=== PATIENT | male | born 1950 | race Caucasian/White ===

== ENCOUNTER 2019-02-14 07:19 | Inpatient (IN) | payer MEDICARE, BC ==
[~2019-02-14] VITALS: Ht 190.5 cm; Wt 99.8 kg
[2019-02-14] MEDS ORDERED: MORPHINE SULFATE INJ 2 MG/ML DISP.SYRIN IV ONE (07:30)
[2019-02-14] MEDS ORDERED: ONDANSETRON HCL/PF - ER 4 MG/2 ML VIAL IV ONE (07:30)
--- NOTE | 2019-02-14 07:31 | NUR ---
DR HENDERSON AT BEDSIDE FOR EVAL.
[2019-02-14] MEDS ORDERED: ONDANSETRON HCL/PF 4 MG/2 ML VIAL ONE (07:34)
[2019-02-14] MEDS ORDERED: MORPHINE SULFATE INJ 4 MG/ML DISP.SYRIN ONE (07:34)
--- NOTE | 2019-02-14 07:50 | NUR ---
RADIOLOGY AT BEDSIDE FOR R TIB/FIB, R ANKLE XRAY
--- NOTE | 2019-02-14 08:55 | NUR ---
Erika ambrocio in [facility] - 02/14/19 at 0856 by ELIDA IV LINE STARTED BLOOD DRAWN AND SENT TO LAB.
--- NOTE | 2019-02-14 09:12 | NUR ---
PAGED FREDDIE WHITE FOR ADMISSION
--- NOTE | 2019-02-14 09:12 | NUR ---
PAGED CLAUDIO MOLINA PA-C FOR ORTHO CONSULT
[2019-02-14 09:18] LABS: BASOPHILS % (AUTO) 0.6 % (0.0-2.0); EOSINOPHILS % (AUTO) 0.8 % (0.0-6.0); HEMATOCRIT 33 % (39-51); LYMPHOCYTES # (AUTO) 0.8 /CMM (0.8-4.8); LYMPHOCYTES % (AUTO) 11.3 % (20.0-44.0); MEAN CORPUSCULAR HGB CONC 34 g/dl (31.0-36.0); MEAN CORPUSCULAR VOLUME 93 fL (80-96); MONOCYTES # (AUTO) 0.9 /CMM (0.1-1.30); MONOCYTES % (AUTO) 12.5 % (2.0-12.0); NEUTROPHILS # (AUTO) 5.2 /CMM (1.8-8.9); NEUTROPHILS % (AUTO) 74.8 % (43.0-81.0); PLATELET COUNT (AUTO) 118 /CMM (150-450); RED BLOOD CELL COUNT(AUTO) 3.49 MIL/uL (4.5-6.0); WHITE BLOOD COUNT (AUTO) 6.9 K/uL (4.3-11.0)
[2019-02-14] MEDS ORDERED: OXYC5CAP18 PO (09:23)
[2019-02-14] MEDS ORDERED: ALFU10TA10 PO (09:23)
[2019-02-14] MEDS ORDERED: ATOR10TA PO (09:23)
[2019-02-14] MEDS ORDERED: FAMO20TA8 PO (09:23)
[2019-02-14] MEDS ORDERED: DULO20CA PO (09:23)
[2019-02-14] MEDS ORDERED: KETO10TA2 PO (09:23)
[2019-02-14] MEDS ORDERED: ASPI-992 PO (09:23)
[2019-02-14] MEDS ORDERED: LISI-603 PO (09:23)
[2019-02-14] MEDS ORDERED: DEXA2TAB PO (09:23)
[2019-02-14 09:27] LABS: CALCIUM, SERUM 8.3 mg/dL (8.5-10.1); CREATININE 0.8 mg/dL (0.6-1.3); POTASSIUM 4.1 mmol/L (3.5-5.1)
[2019-02-14 09:53] VITALS: BP 112/68
--- NOTE | 2019-02-14 09:59 | NUR ---
REPORT GIVEN TO PILAR MCCARTNEY. AWAITING TRANSFER TO FLOOR.
--- NOTE | 2019-02-14 10:55 | NUR ---
M/S ADMISSION NOTES PATIENT ADMITTED TODAY, REPORT GIVEN BY BIB REDMAN FROM ER. PATIENT ALERT AND ORIENTED X4, PATIENT'S VSS, NO RESPIRATORY DISTRESS NOTED, PAIN TOLERABLE AT THIS TIME AT A LEVEL OF 3/10 WITH INACTIVITY. DRESSING AND SPLINT ON THE RT LOWER LEG CLEAN, DRY AND INTACT. SKIN WARM TO TOUCH. IV ACCESS SITE ON THE RT HAND #[id number], INTACT AND PATENT. PATIENT'S BELONGINGS ACCOUNTED FOR AND SIGNED. PATIENT'S NEEDS ATTENDED, BED ON LOWEST LOCKED POSITION, CALL LIGHT WITHIN REACH. WILL CONTINUE TO MONITOR
[2019-02-14] MEDS ORDERED: MAG HYDROX/AL HYDROX/SIMETH 30 ML UDC PO PRN (11:30)
[2019-02-14] MEDS ORDERED: ZOLPIDEM TARTRATE 5 MG TABLET PO PRN (11:30)
[2019-02-14] MEDS ORDERED: MAGNESIUM HYDROXIDE 30 ML UDC PO PRN (11:30)
[2019-02-14] MEDS ORDERED: ONDANSETRON HCL/PF 4 MG/2 ML VIAL IVP PRN (11:30)
[2019-02-14] MEDS ORDERED: ACETAMINOPHEN 325 MG TABLET PO PRN (11:30)
[2019-02-14] MEDS ORDERED: Z GUARD REMEDY 2 OZ OINT TP PRN (11:30)
[2019-02-14] MEDS ORDERED: IV NS 0.9% 1,000 ML BAG IV PRN (11:30)
[2019-02-14] MEDS ORDERED: HYDROCODONE/APAP 5/325MG 1 EACH TABLET PO PRN (11:30)
[2019-02-14] MEDS ORDERED: oxyCODONE IR immediate release 5 MG PO PRN (12:30)
[2019-02-14] MEDS ORDERED: MORPHINE SULFATE INJ 2 MG/ML DISP.SYRIN IV PRN (12:30)
--- NOTE | 2019-02-14 17:00 | NUR ---
M/S RN NOTES PATIENT DISCHARGED AMA AT THIS TIME GOING HOME. PROVIDED PATIENT TEACHING AND EXPLAINED RISKS AND BENEFITS, VERBALIZED UNDERSTANDING. PATIENT ESCORTED BY STAFF TO THE LOBBY IN WHEELCHAIR AND GIVEN CRUTCHES, LEFT WITH FAMILY VIA PRIVATE CAR.
[2019-02-15] MEDS ORDERED: PANTOPRAZOLE 40 MG TABLET.DR PO SCH (07:30)
== END 2019-02-14 17:15 | disposition left against medical advice (07) | DRG 562 ==
LOC: ER 07:20 → TELE 10:07
PROVIDERS: ADMIT Nurse Practitioner Acute Care; ATTEND Nurse Practitioner Acute Care
DX: S82.841A Displaced bimalleolar fracture of right lower leg, initial encounter for closed fracture (principal); N17.0 Acute kidney failure with tubular necrosis; W18.30XA Fall on same level, unspecified, initial encounter; E78.5 Hyperlipidemia, unspecified; D64.9 Anemia, unspecified; I10 Essential (primary) hypertension; M19.90 Unspecified osteoarthritis, unspecified site; Z87.891 Personal history of nicotine dependence; Y93.9 Activity, unspecified; Y92.009 Unspecified place in unspecified non-institutional (private) residence as the place of occurrence of the external cause; Z86.19 Personal history of other infectious and parasitic diseases; Z96.642 Presence of left artificial hip joint; Z79.82 Long term (current) use of aspirin
CPT/HCPCS: 36415; 73590-TC; 73610-TC; 80048-TC; 85025-TC; 85730-TC; 87081-TC; G0378; J2270; J2405; J7030